=== PATIENT | female | born 1970 | race Hispanic/Latino ===

== ENCOUNTER 2016-07-24 09:01 | Outpatient (CLI) | payer BC ==
--- NOTE | 2016-07-25 12:16 | Nuclear Medicine Report ---
NUCLEAR MEDICINE THYROID UPTAKE MULTIPLE HISTORY: Hyperthyroidism. COMPARISON: None. FINDINGS: Scintigraphic images of the thyroid bed were obtained 4 hours and 22 hours following administration of 280 microcuries of I-123. The scintigraphic images of the thyroid gland demonstrate no evidence for hot or cold nodule. There is symmetric uptake. 4 hour uptake measures 15.8%. Normal range 4-18%. 22 hour uptake measures 27.7%. Normal range 18-36%.
== END 2016-07-24 09:02 | disposition home or self-care (01) ==
LOC: NM 09:01
PROVIDERS: ATTEND Orthopaedic Surgery
DX: E05.90 Thyrotoxicosis, unspecified without thyrotoxic crisis or storm (principal)
CPT/HCPCS: 78012; A9516